=== PATIENT | female | born 1940 | race Caucasian/White ===

== ENCOUNTER → 2017-08-22 | Outpatient (CLI) | payer BC ==
[2017-08-22 06:03] LABS: ALBUMIN 3.2 g/dL (3.4-5.0); ALBUMIN/GLOBULIN RATIO 0.9 (1.0-1.7); ALK PHOS 87 U/L (46-116); ALT (SGPT) 25 U/L (14-59); ANION GAP 14 (6-14); AST (SGOT) 21 U/L (15-37); BLOOD UREA NITROGEN 16 mg/dL (7-20); BUN/CREATININE RATIO 15 (6-20); CALCIUM 8.5 mg/dL (8.5-10.1); CARBON DIOXIDE 24 mmol/L (21-32); CHLORIDE 105 mmol/L (98-107); CHOLESTEROL 146 mg/dL (0-200); CREATININE 1.1 mg/dL (0.6-1.0); GFR 48.2; GLUCOSE 102 mg/dL (70-99); HDLC 56 mg/dL (40-60); LDLC 69 mg/dL (0-100); NON-HDL CHOLESTEROL 90 mg/dL (0-129); POTASSIUM 3.7 mmol/L (3.5-5.1); SODIUM 143 mmol/L (136-145); TOTAL BILIRUBIN 0.5 mg/dL (0.2-1.0); TOTAL PROTEIN 6.8 g/dL (6.4-8.2); TRIGLYCERIDES 104 mg/dL (0-150); VLDLC 21 mg/dL (0-40)
[2017-08-22 06:04] LABS: CHOLESTEROL/HDL RATIO 2.6
== END | disposition home or self-care (01) ==
LOC: LAB 05:27
DX: Z51.81 Encounter for therapeutic drug level monitoring (principal); E78.5 Hyperlipidemia, unspecified; I11.0 Hypertensive heart disease with heart failure; I50.9 Heart failure, unspecified; I25.10 Atherosclerotic heart disease of native coronary artery without angina pectoris; Z79.899 Other long term (current) drug therapy
CPT/HCPCS: 36415; 80053; 80061

== ENCOUNTER → 2020-03-31 | Outpatient (CLI) | payer BC, OTHER ==
[2014-08-18 11:00] VITALS: BP 146/60
[~2020-03-31] MED LIST: AMIO200T PO; ASPI-630 PO; ATEN25TA PO; ATOR20TA PO; CALC500T31 PO; CARV12.5 PO; CENTRUM CHEWAB1 EACH PO; DABI150C PO; Diltiazem Hcl PO; FURO-68 PO; Hydrocodone/Acetaminophen PO; LISI20TA PO; LOSA25TA54 PO; MELA1TAB44 PO; MULT1TAB92 PO; NIAC50TA3 PO; OMEG-33 PO; OMEG1CAP6 PO; OMEG300C PO; PERFLUTREN PROTEIN-A MICROSPHR 0.22 MG/ML 3 ML VIAL. IV ONE; POTA20TA12 PO; PSYL0.528 PO; VITA100T5 PO
--- NOTE | 2020-03-31 16:35 | CARD ---
MR#: [id number] Date of Study: 03/31/2020 Ordering Physician: YASSINE DOUGLASS, Referring Physician: YASSINE DOUGLASS Tech: Erica Vences [facility] APPROVED REPORT EXAM: Two-dimensional and M-mode echocardiogram with Doppler and color Doppler. Other Information Quality : Technically LimitedHR: 59bpm Rhythm : NSRTechnically limited study due to body habitus. INDICATION Hypertension/HCVD Echo Enhancing Agent Indication: Endocardial border delineation Agent/Amount Used: Optison 3mL RISK FACTORS Hypertension Obesity 2D DIMENSIONS RVDd3.2 (2.9-3.5cm)Left Atrium(2D)5.2 (1.6-4.0cm) IVSd1.2 (0.7-1.1cm)Aortic Root(2D)3.1 (2.0-3.7cm) LVDd5.1 (3.9-5.9cm)LVOT Diameter2.1 (1.8-2.4cm) PWd1.1 (0.7-1.1cm)IVSs1.3 (0.8-1.2cm) LVDs4.1 (2.5-4.0cm)FS (%) 20.3 % PWs1.2 (0.8-1.2cm)SV51.0 ml LVEF(%)41.3 (>50%) Aortic Valve AoV Peak Luis Armando.144.9cm/sAoV VTI32.4cm AO Peak GR.8.4mmHgLVOT Peak Luis Armando.95.1cm/s LVOT VTI 21.65cmAO Mean GR.5mmHg KYLE (VMAX)2.26su3OGT (VTI)2.27cm2 Mitral Valve MV E Ndjjcbvx569.5cm/sMV DECEL XSAJ311om MV A Axrgpyti14.2cm/sMV WZB00vo E/A Ratio2.5MVA (PHT)4.36cm2 TDI E/Medial E'20.4 Pulmonary Valve PV Peak Kukgaefc175.7cm/sPV Peak Grad.7mmHg Tricuspid Valve TR P. Spkghqfb406ds/sTR Peak Gr.24mmHg Pulmonary Vein S1 Zxgvepxe77.9cm/sD2 Nrrvsyks68.7cm/s PVa [id number] LEFT VENTRICLE The left ventricle is normal size. There is borderline to mild concentric left ventricular hypertroph y. The left ventricular systolic function is normal.. Estimated ejection fraction 55-60%. There is n ormal LV segmental wall motion. Tissue Doppler imaging reveals mild left ventricular diastolic dysfun ction. RIGHT VENTRICLE The right ventricle is normal size. There is normal right ventricular wall thickness. The right ventr icular systolic function is normal. ATRIA The left atrium size is normal. The right atrium size is normal. The interatrial septum is intact wit h no evidence for an atrial septal defect or patent foramen ovale as noted on 2-D or Doppler imaging. AORTIC VALVE The aortic valve is normal in structure and function. Doppler and Color Flow revealed no significant aortic regurgitation. There is no significant aortic valvular stenosis. MITRAL VALVE The mitral valve is normal in structure and function. There is no evidence of mitral valve prolapse. There is no mitral valve stenosis. Doppler and Color-flow revealed moderate mitral regurgitation. TRICUSPID VALVE The tricuspid valve is normal in structure and function. Doppler and Color Flow revealed trace tricus pid valve regurgitation. There is no tricuspid valve stenosis. PULMONIC VALVE The pulmonary valve is normal in structure and function. Doppler and Color Flow revealed no pulmonic valvular regurgitation. GREAT VESSELS The aortic root is normal in size. The ascending aorta is normal in size. The IVC is normal in size a nd collapses >50% with inspiration. PERICARDIAL EFFUSION There is no evidence of significant pericardial effusion. Critical Notification Critical Value: No <Conclusion> The left ventricular systolic function is normal.. Estimated ejection fraction 55-60%. There is normal LV segmental wall motion. Moderate mitral regurgitation. Trace tricuspid valve regurgitation. There is no evidence of significant pericardial effusion. Signed by : Yassine Douglass, Electronically Approved : 03/31/2020 16:34:57
== END ==
LOC: ECHO 10:26
PROVIDERS: ATTEND Internal Medicine Cardiovascular Disease
DX: I34.0 Nonrheumatic mitral (valve) insufficiency (principal); R06.02 Shortness of breath
CPT/HCPCS: C8929; Q9956

== ENCOUNTER 2021-03-22 10:27 | Day surgery (SDC) | payer BC ==
[~2021-03-22] VITALS: Ht 160 cm; Wt 96.8 kg
[~2021-03-22 10:27] MED LIST changes: +ACET325T9 PO; +APIX2.5T PO; +CALC-31 PO; +DILT180C29 PO; +DOXY25TA16 PO; +IV RINGERS,LACTATED 1000ML 1,000 ML IV SCH; +LEVO75TA5 PO; +LOSA100T14 PO; -PERFLUTREN PROTEIN-A MICROSPHR 0.22 MG/ML 3 ML VIAL. IV ONE
[2021-03-22] MEDS ORDERED: LIDOCAINE 2% VISCOUS 15 ML SOLUTION. SWSW ONE (10:45)
[2021-03-22] MEDS ORDERED: LIDOCAINE 2% TOPICAL JELLY 30GM TUBE. TP ONE (10:45)
[2021-03-22] MEDS ORDERED: BENZOCAINE ONE 20% MUCOSAL SPRAY. MM (10:45)
[2021-03-22 13:34] VITALS: BP 134/72
--- NOTE | 2021-03-23 10:00 | CARD ---
MR#: [id number] Date of Study: 03/22/2021 Ordering Physician: DELICIA FLORES, Referring Physician: DELICIA FLORES, Tech: Jany Iverson [facility] APPROVED REPORT EXAM: Transesophageal echocardiogram with color flow Doppler. INDICATION Atrial Fibrillation Congestive Heart Failure Reason For Test : Rule out Intracardiac Thrombus. PROCEDURE After obtaining informed consent, patient underwent transesophageal echo in the PACU. Type of Sedation : General Anesthesia Sedation was administered by Dr. Verdin. Sedation was achieved with Propofol 60mg intravenously. Transesophageal probe was inserted and advanced into esophagus by Ricky Burgos MD. The ALEJANDRA was performed without complications. Throughout the procedure, the blood pressure, pulse oximetry, cardiac rhythm, and rate were monitored . The patient tolerated the procedure without adverse effects. Recovery from general anesthesia was une ventful and vital signs were stable. LEFT VENTRICLE The left ventricle is normal size. There is mild concentric left ventricular hypertrophy. The systoli c function is mildly impaired. The Ejection Fraction is 45-50%. There is mild global hypokinesis. Tis jovan Doppler imaging reveals moderate left ventricular diastolic dysfunction. No left ventricle thromb us noted on this study. There is no ventricular septal defect visualized. There is no left ventricula r aneurysm. There is no mass noted in the left ventricle. RIGHT VENTRICLE The right ventricle is normal size. There is normal right ventricular wall thickness. The right ventr icular systolic function is normal. ATRIA The left atrium is mild to moderately dilated. The right atrium is borderline dilated. The interatria l septum is intact with no evidence for an atrial septal defect or patent foramen ovale as noted on 2 -D or Doppler imaging. There is no thrombus noted in the left atrial appendage. AORTIC VALVE The aortic valve is normal in structure and function. Doppler and Color Flow revealed trace aortic re gurgitation. There is no significant aortic valvular stenosis. MITRAL VALVE The mitral valve is calcified with partial prolapse of the posterior leaflet. There is no evidence of mitral valve prolapse. There is no mitral valve stenosis. Doppler and Color-flow revealed moderate t o severe eccentric anteriorly directed mitral regurgitation. TRICUSPID VALVE The tricuspid valve is normal in structure and function. Doppler and Color Flow revealed no tricuspid valve regurgitation noted. There is no tricuspid valve stenosis. PULMONIC VALVE The pulmonary valve is normal in structure and function. Doppler and Color Flow revealed no pulmonic valvular regurgitation. There is no pulmonic valvular stenosis. GREAT VESSELS The aortic root is normal in size. The IVC is normal in size and collapses >50% with inspiration. Critical Notification Critical Value: No <Conclusion> The systolic function is mildly impaired. The Ejection Fraction is 45-50%. There is mild global hypokinesis. No left ventricle thrombus noted on this study. The left atrium is mild to moderately dilated. There is no thrombus noted in the left atrial appendage. Doppler and Color-flow revealed moderate to severe eccentric anteriorly directed mitral regurgitation . Signed by : Fernando Burgos, Electronically Approved : 03/23/2021 10:00:22
== END 2021-03-22 13:55 | disposition home or self-care (01) ==
LOC: SURG 10:27
PROVIDERS: ATTEND Internal Medicine Cardiovascular Disease
DX: I48.91 Unspecified atrial fibrillation (principal); I34.0 Nonrheumatic mitral (valve) insufficiency; I11.0 Hypertensive heart disease with heart failure; I50.9 Heart failure, unspecified; E78.00 Pure hypercholesterolemia, unspecified; E03.9 Hypothyroidism, unspecified; Z79.899 Other long term (current) drug therapy; Z98.890 Other specified postprocedural states
CPT/HCPCS: 76376; 93312; 93320; 93325